=== PATIENT | female | born 1960 | race Caucasian/White ===

== ENCOUNTER 2018-06-15 14:23 | Inpatient (IN) ==
[2018-06-15] MEDS ORDERED: ONDANSETRON 4 MG/2 ML VIAL IV PRN (16:51)
[2018-06-15] MEDS ORDERED: hydrALAZINE 20 MG/1 ML VIAL IV PRN (17:04)
[2018-06-15] MEDS: SODIUM CHLORIDE 0.9% 1,000 ML IV SCH (18:25)
[2018-06-15 18:31] LABS: Basophils % 0.3 % (0.0-0.8); Eosinophils # 0.1 10*3/uL (0.0-0.87); Eosinophils % 1.1 % (0.00-10.9); Hematocrit 33.3 VOL% (35.7-47.0); Hemoglobin 9.9 GM/DL (12.0-16.0); Immature Granulocytes Absolute 0.11 #; Lymphocytes # 0.8 10*3/uL (1.4-4.0); Lymphocytes % 7.5 % (21.3-54.2); Mean Corpuscular HGB Conc 29.7 GM/DL (32-36); Mean Corpuscular Hemoglobin 29 PG (27-34); Mean Corpuscular Volume 96.5 FL (87-102); Mean Platelet Volume 9.4 FL (9.6-12.0); Monocytes # 0.6 10*3/uL (0.11-0.8); Monocytes % 5.5 % (1.7-12.7); Neutrophils # 9.4 10*3/uL (1.4-7.4); Neutrophils % 84.6 % (38.7-73.9); Platelet Count 352 T/CUMM (130-400); Red Blood Count 3.45 MC/CUMM (3.8-5.5); Red Cell Distribution Width 15.7 % (9.3-17.3); White Blood Count 11.1 T/CUMM (4-12)
[2018-06-15 18:53] LABS: Alanine Aminotransferase < 9 U/L (13-56); Albumin 2.7 G/DL (3.4-5.0); Alkaline Phosphatase 54 U/L (45-117); Aspartate Amino Transferase 9 U/L (0-37); Bilirubin,Total < 0.39 MG/DL (0.2-1.0); Blood Urea Nitrogen 16 MG/DL (7-18); Calcium 8.8 MG/DL (8.5-10.1); Glucose 88 MG/DL (74-106); Osmolality,Calculated 274.7 MOS/KG (273-304); Potassium 4.2 MMOL/L (3.5-5.1); Sodium 138 MMOL/L (136-145)
[2018-06-15] MEDS: MORPHINE 4 MG/1 ML VIAL IV PRN (19:40)
[2018-06-15] MEDS: ENOXAPARIN 40 MG/0.4 ML SYRINGE SUBCUT SCH (21:45)
[2018-06-16] MEDS: SODIUM CHLORIDE 0.9% 1,000 ML IV SCH ×3 (02:34→19:42)
[2018-06-16 05:00] LABS: Basophils % 0.3 % (0.0-0.8); Eosinophils # 0.1 10*3/uL (0.0-0.87); Eosinophils % 1.7 % (0.00-10.9); Hemoglobin 8.8 GM/DL (12.0-16.0); Immature Granulocytes Absolute 0.15 #; Lymphocytes # 0.9 10*3/uL (1.4-4.0); Lymphocytes % 11.9 % (21.3-54.2); Mean Corpuscular HGB Conc 30.3 GM/DL (32-36); Mean Corpuscular Hemoglobin 29 PG (27-34); Mean Corpuscular Volume 95.1 FL (87-102); Mean Platelet Volume 9.7 FL (9.6-12.0); Monocytes # 0.6 10*3/uL (0.11-0.8); Monocytes % 8.3 % (1.7-12.7); Neutrophils # 5.8 10*3/uL (1.4-7.4); Neutrophils % 75.8 % (38.7-73.9); Platelet Count 309 T/CUMM (130-400); Red Blood Count 3.05 MC/CUMM (3.8-5.5); Red Cell Distribution Width 15.7 % (9.3-17.3); White Blood Count 7.7 T/CUMM (4-12)
[2018-06-16 05:29] LABS: Calcium 8.4 MG/DL (8.5-10.1); Osmolality,Calculated 280.3 MOS/KG (273-304); Potassium 3.9 MMOL/L (3.5-5.1)
[2018-06-16] MEDS ORDERED: SODIUM PHOSPHATE ENEMA 133 ML BOTTLE RECTAL ONE (08:44)
[2018-06-16] MEDS ORDERED: POLYETHYLENE GLYCOL POWDER 255 GM BOTTLE PO ONE (08:45)
[2018-06-16] MEDS: BISACODYL 5 MG TABLET PO SCH ×2 (10:46→19:27)
[2018-06-16] MEDS: NICOTINE 14 MG/24 HR PATCH TRANSDERM SCH (10:47)
[2018-06-16] MEDS: MORPHINE 4 MG/1 ML VIAL IV PRN ×2 (11:14→19:28)
[2018-06-16] MEDS: ENOXAPARIN 40 MG/0.4 ML SYRINGE SUBCUT SCH (21:28)
[2018-06-17] MEDS: BISACODYL 5 MG TABLET PO SCH (00:45)
[2018-06-17] MEDS: SODIUM CHLORIDE 0.9% 1,000 ML IV SCH ×2 (03:40→11:58)
[2018-06-17 04:23] LABS: Basophils % 0.5 % (0.0-0.8); Eosinophils # 0.1 10*3/uL (0.0-0.87); Eosinophils % 1.4 % (0.00-10.9); Immature Granulocytes % 1.1 %; Immature Granulocytes Absolute 0.07 #; Lymphocytes # 0.9 10*3/uL (1.4-4.0); Lymphocytes % 13.8 % (21.3-54.2); Mean Corpuscular Hemoglobin 28 PG (27-34); Mean Corpuscular Volume 94.3 FL (87-102); Mean Platelet Volume 9.7 FL (9.6-12.0); Monocytes # 0.5 10*3/uL (0.11-0.8); Monocytes % 7.1 % (1.7-12.7); Neutrophils % 76.1 % (38.7-73.9); Platelet Count 319 T/CUMM (130-400); Red Blood Count 3.18 MC/CUMM (3.8-5.5); Red Cell Distribution Width 15.6 % (9.3-17.3); White Blood Count 6.6 T/CUMM (4-12)
[2018-06-17 04:47] LABS: Alanine Aminotransferase < 9 U/L (13-56); Albumin 2.3 G/DL (3.4-5.0); Alkaline Phosphatase 49 U/L (45-117); Aspartate Amino Transferase 8 U/L (0-37); Bilirubin,Total < 0.39 MG/DL (0.2-1.0); Blood Urea Nitrogen 12 MG/DL (7-18); Calcium 7.7 MG/DL (8.5-10.1); Glucose 80 MG/DL (74-106); Osmolality,Calculated 281.1 MOS/KG (273-304); Potassium 3.5 MMOL/L (3.5-5.1); Sodium 142 MMOL/L (136-145); Total Protein 5.9 G/DL (6.4-8.3)
[2018-06-17] MEDS: MORPHINE 4 MG/1 ML VIAL IV PRN ×2 (04:59→09:34)
[2018-06-17] MEDS ORDERED: MAGNESIUM SULF RIDER 2 GM in PREMIX 1 EACH IV PRN (06:56)
[2018-06-17] MEDS ORDERED: POLYETHYLENE GLYCOL POWDER 17 GM PACK PO SCH (09:00)
[2018-06-17] MEDS ORDERED: MAGNESIUM CHLORIDE 64 MG TABLET PO SCH (09:00)
[2018-06-17] MEDS: NICOTINE 14 MG/24 HR PATCH TRANSDERM SCH ×2 (09:23→09:37)
[2018-06-17 11:19] VITALS: BP 118/62
[2018-06-18] MEDS ORDERED: MAGNESIUM CHLORIDE 64 MG TABLET PO SCH (09:00)
== END 2018-06-17 13:26 | disposition home or self-care (01) | DRG 392 ==
LOC: N.3E 15:28 → SUATTDRO 15:28
PROVIDERS: ADMIT Internal Medicine; ATTEND Hospitalist

== ENCOUNTER 2018-10-16 18:36 | Inpatient (IN) ==
[2018-10-16 19:26] LABS: Basophils % 0.2 % (0.0-0.8); Eosinophils % 0.2 % (0.00-10.9); Hematocrit 39.5 VOL% (35.7-47.0); Hemoglobin 12.3 GM/DL (12.0-16.0); Immature Granulocytes % 0.6 %; Immature Granulocytes Absolute 0.07 #; Lymphocytes # 0.6 10*3/uL (1.4-4.0); Lymphocytes % 4.6 % (21.3-54.2); Mean Corpuscular HGB Conc 31.1 GM/DL (32-36); Mean Corpuscular Volume 91.4 FL (87-102); Mean Platelet Volume 9.5 FL (9.6-12.0); Monocytes % 3.5 % (1.7-12.7); Neutrophils % 90.9 % (38.7-73.9); Platelet Count 233 T/CUMM (130-400); Red Blood Count 4.32 MC/CUMM (3.8-5.5); White Blood Count 12.2 T/CUMM (4-12)
[2018-10-16 19:45] LABS: Albumin 3.1 G/DL (3.4-5.0); Bilirubin,Total 0.4 MG/DL (0.2-1.0); Calcium 9.4 MG/DL (8.5-10.1); Osmolality,Calculated 283.4 MOS/KG (273-304)
[2018-10-16 19:49] LABS: Eosinophils 1 % (0-10); Lymphocytes 17 % (20-55); Platelet Estimate Normal; Segmented Neutrophils 75 % (50-85); Total Cells Counted 100
[2018-10-16 19:50] LABS: Microcytosis Slight
[2018-10-16 20:24] LABS: Apearance,Urine CLEAR (Clear); Bilirubin,Urine Negative (Negative); Blood, Urine Negative (Negative); Glucose,Urine (UA) Negative (Negative); Ketones,Urine Negative (Negative); Nitrite,Urine Negative (Negative); Protein,Urine 30 MG/DL; Squamous Epithelial Cell,Urine Occasional /HPF (0-10); Urine Color Yellow (Yellow); Urine Specific Gravity 1.049 (1.001-1.035); Urine Urobilinogen < 2.0 EU/DL (0.2-1.0)
[2018-10-16] MEDS ORDERED: MEROPENEM 1,000 MG in SODIUM CHLORIDE 0.9% 100 ML IV STA (20:57)
[2018-10-16] MEDS ORDERED: ONDANSETRON 4 MG/2 ML VIAL IV STA (20:58)
[2018-10-16] MEDS ORDERED: MORPHINE 4 MG/1 ML VIAL IV STA (20:58)
[2018-10-17] MEDS ORDERED: MORPHINE PO PRN (00:53)
[2018-10-17] MEDS ORDERED: PROMETHAZINE 25 MG/1 ML VIAL IM PRN (00:53)
[2018-10-17] MEDS ORDERED: DIPHENOXYLATE/ATROPINE 2.5-0.025 MG TABLET PO PRN (00:53)
[2018-10-17] MEDS ORDERED: HYDROmorphone 2 MG/1 ML VIAL IV PRN (00:53)
[2018-10-17] MEDS: PROPOFOL 1,000 MG/100 ML BOTTLE IV SCH (00:59)
[2018-10-17] MEDS ORDERED: MIDAZOLAM 2 MG/2 ML VIAL ONE (01:00)
[2018-10-17] MEDS ORDERED: SUCCINYLCHOLINE 200 MG/10 ML VIAL ONE (01:00)
[2018-10-17] MEDS ORDERED: LACTATED RINGERS 1,000 ML IV ONE ×2 (01:00→12:28)
[2018-10-17] MEDS ORDERED: ALBUMIN 5% 12.5 GM/250 ML VIAL IV ONE (01:00)
[2018-10-17] MEDS ORDERED: fentaNYL 100 MCG/2 ML VIAL ONE (01:00)
[2018-10-17] MEDS ORDERED: SEVOFLURANE 1 UNIT/15 MINUTE INH ONE (01:00)
[2018-10-17] MEDS ORDERED: PROPOFOL 1,000 MG/100 ML BOTTLE IV SCH (01:00)
[2018-10-17] MEDS ORDERED: ETOMIDATE 40 MG/20 ML VIAL IV ONE (01:00)
[2018-10-17] MEDS ORDERED: ROCURONIUM 100 MG/10 ML VIAL IV ONE (01:00)
[2018-10-17] MEDS ORDERED: hydrALAZINE 20 MG/1 ML VIAL ONE (01:01)
[2018-10-17 01:18] LABS: ABG Base Excess -0.1 MMOL/L (-2.5-2.5); ABG HCO3 24.3 MMOL/L (20-26); ABG PCO2 38.8 MM HG (35-48); ABG PH 7.406 (7.35-7.45); ABG TCO2 21.5 MMOL/L (23-27); Allen Test Positive; Pt O2 Delivery Device Ventilator
[2018-10-17] MEDS: hydrALAZINE 20 MG/1 ML VIAL IV PRN ×2 (01:27→23:13)
[2018-10-17] MEDS: LACTATED RINGERS 1,000 ML IV SCH ×3 (01:27→22:46)
[2018-10-17] MEDS: HYDROmorphone 2 MG/1 ML VIAL IV PRN ×6 (02:29→23:21)
[2018-10-17 03:47] LABS: ABG Base Excess 0.2 MMOL/L (-2.5-2.5); ABG HCO3 24.6 MMOL/L (20-26); ABG Oxygen Saturation 99.9 % (95-100); ABG PCO2 46.6 MM HG (35-48); ABG PH 7.358 (7.35-7.45); Allen Test Positive; Pt O2 Delivery Device Ventilator
[2018-10-17 04:28] LABS: Basophils % 0.2 % (0.0-0.8); Eosinophils % 0.3 % (0.00-10.9); Hematocrit 43.1 VOL% (35.7-47.0); Hemoglobin 13.2 GM/DL (12.0-16.0); Immature Granulocytes % 1.5 %; Immature Granulocytes Absolute 0.13 #; Lymphocytes # 0.7 10*3/uL (1.4-4.0); Lymphocytes % 8.1 % (21.3-54.2); Mean Corpuscular HGB Conc 30.6 GM/DL (32-36); Mean Corpuscular Volume 92.9 FL (87-102); Mean Platelet Volume 9.5 FL (9.6-12.0); Monocytes % 3.7 % (1.7-12.7); Neutrophils % 86.2 % (38.7-73.9); Platelet Count 256 T/CUMM (130-400); Red Blood Count 4.64 MC/CUMM (3.8-5.5); Red Cell Distribution Width 16.4 % (9.3-17.3); White Blood Count 8.7 T/CUMM (4-12)
[2018-10-17 04:45] LABS: Osmolality,Calculated 278.7 MOS/KG (273-304)
[2018-10-17 05:31] LABS: Anisocytosis Slight; Band Neutrophils 4 % (0-10); Lymphocytes 12 % (20-55); Macrocytosis Slight; Platelet Estimate Normal; Segmented Neutrophils 80 % (50-85); Total Cells Counted 100
[2018-10-17] MEDS: ACYCLOVIR 200 MG CAPSULE PO SCH ×5 (06:34→21:16)
[2018-10-17] MEDS ORDERED: PANTOPRAZOLE 40 MG TABLET PO SCH (09:00)
[2018-10-17] MEDS: amLODIPine 5 MG TABLET PO SCH (09:52)
[2018-10-17] MEDS: METOPROLOL TARTRATE 100 MG TABLET PO SCH ×2 (09:52→21:16)
[2018-10-17] MEDS: ESCITALOPRAM 10 MG TABLET PO SCH (09:52)
[2018-10-17] MEDS: FAMOTIDINE 20 MG/2 ML VIAL IV SCH (12:04)
[2018-10-17 12:56] LABS: Allen Test Positive; Pt O2 Delivery Device Ventilator
[2018-10-17 12:57] LABS: ABG Base Excess 0.7 MMOL/L (-2.5-2.5); ABG HCO3 25.1 MMOL/L (20-26); ABG Oxygen Saturation 99.5 % (95-100); ABG PCO2 47.2 MM HG (35-48); ABG PH 7.361 (7.35-7.45); ABG TCO2 23.7 MMOL/L (23-27)
[2018-10-17] MEDS: ENOXAPARIN 40 MG/0.4 ML SYRINGE SUBCUT SCH (21:16)
[2018-10-18] MEDS: HYDROmorphone 2 MG/1 ML VIAL IV PRN ×4 (02:37→19:32)
[2018-10-18] MEDS: PROPOFOL 1,000 MG/100 ML BOTTLE IV SCH (02:38)
[2018-10-18 05:12] LABS: Basophils % 0.1 % (0.0-0.8); Eosinophils % 0.4 % (0.00-10.9); Hematocrit 38.8 VOL% (35.7-47.0); Hemoglobin 11.9 GM/DL (12.0-16.0); Immature Granulocytes % 0.6 %; Immature Granulocytes Absolute 0.04 #; Lymphocytes # 0.5 10*3/uL (1.4-4.0); Lymphocytes % 7.2 % (21.3-54.2); Mean Corpuscular HGB Conc 30.7 GM/DL (32-36); Mean Corpuscular Volume 93.9 FL (87-102); Mean Platelet Volume 10.3 FL (9.6-12.0); Monocytes % 4.9 % (1.7-12.7); Neutrophils % 86.8 % (38.7-73.9); Platelet Count 229 T/CUMM (130-400); Red Blood Count 4.13 MC/CUMM (3.8-5.5); Red Cell Distribution Width 16.1 % (9.3-17.3); White Blood Count 7.1 T/CUMM (4-12)
[2018-10-18 05:39] LABS: Calcium 9.5 MG/DL (8.5-10.1); Osmolality,Calculated 276.5 MOS/KG (273-304)
[2018-10-18] MEDS: LACTATED RINGERS 1,000 ML IV SCH (06:31)
[2018-10-18] MEDS: ACYCLOVIR 200 MG CAPSULE PO SCH ×4 (06:31→16:29)
[2018-10-18] MEDS ORDERED: ALBUTEROL 1.25 MG/3 ML NEB RESP TX PRN (07:29)
[2018-10-18] MEDS: FAMOTIDINE 20 MG/2 ML VIAL IV SCH (08:01)
[2018-10-18] MEDS: METOPROLOL TARTRATE 100 MG TABLET PO SCH ×2 (08:01→21:14)
[2018-10-18] MEDS: ESCITALOPRAM 10 MG TABLET PO SCH (08:02)
[2018-10-18] MEDS: amLODIPine 5 MG TABLET PO SCH (08:02)
[2018-10-18] MEDS: ONDANSETRON 4 MG/2 ML VIAL IV PRN (19:35)
[2018-10-18] MEDS: ENOXAPARIN 40 MG/0.4 ML SYRINGE SUBCUT SCH (21:14)
[2018-10-19] MEDS: HYDROmorphone 2 MG/1 ML VIAL IV PRN ×5 (00:49→21:51)
[2018-10-19] MEDS: ONDANSETRON 4 MG/2 ML VIAL IV PRN (00:51)
[2018-10-19 05:18] LABS: Basophils % 0.5 % (0.0-0.8); Hematocrit 37.2 VOL% (35.7-47.0); Hemoglobin 11.8 GM/DL (12.0-16.0); Immature Granulocytes % 0.5 %; Immature Granulocytes Absolute 0.02 #; Lymphocytes # 0.3 10*3/uL (1.4-4.0); Mean Corpuscular HGB Conc 31.7 GM/DL (32-36); Mean Corpuscular Volume 91.2 FL (87-102); Mean Platelet Volume 10.2 FL (9.6-12.0); Monocytes % 5.8 % (1.7-12.7); Neutrophils % 85.2 % (38.7-73.9); Platelet Count 260 T/CUMM (130-400); Red Blood Count 4.08 MC/CUMM (3.8-5.5); Red Cell Distribution Width 15.9 % (9.3-17.3); White Blood Count 4.2 T/CUMM (4-12)
[2018-10-19 05:24] LABS: Calcium 9.2 MG/DL (8.5-10.1); Osmolality,Calculated 280.5 MOS/KG (273-304)
[2018-10-19] MEDS: ESCITALOPRAM 10 MG TABLET PO SCH (08:38)
[2018-10-19] MEDS: amLODIPine 5 MG TABLET PO SCH (08:39)
[2018-10-19] MEDS: METOPROLOL TARTRATE 100 MG TABLET PO SCH ×2 (08:39→21:52)
[2018-10-19] MEDS: FAMOTIDINE 20 MG/2 ML VIAL IV SCH (08:39)
[2018-10-19] MEDS: POLYETHYLENE GLYCOL POWDER 17 GM PACK PO SCH (14:07)
[2018-10-19] MEDS: ENOXAPARIN 40 MG/0.4 ML SYRINGE SUBCUT SCH (21:53)
[2018-10-20] MEDS: HYDROmorphone 2 MG/1 ML VIAL IV PRN ×4 (02:56→20:21)
[2018-10-20] MEDS: ONDANSETRON 4 MG/2 ML VIAL IV PRN (02:57)
[2018-10-20 07:53] LABS: Basophils % 0.2 % (0.0-0.8); Eosinophils # 0.1 10*3/uL (0.0-0.87); Eosinophils % 1.5 % (0.00-10.9); Hematocrit 33.9 VOL% (35.7-47.0); Hemoglobin 10.6 GM/DL (12.0-16.0); Immature Granulocytes % 0.4 %; Immature Granulocytes Absolute 0.02 #; Lymphocytes # 0.5 10*3/uL (1.4-4.0); Lymphocytes % 10.5 % (21.3-54.2); Mean Corpuscular HGB Conc 31.3 GM/DL (32-36); Mean Corpuscular Volume 92.6 FL (87-102); Mean Platelet Volume 9.5 FL (9.6-12.0); Monocytes % 7.3 % (1.7-12.7); Neutrophils % 80.1 % (38.7-73.9); Platelet Count 243 T/CUMM (130-400); Red Blood Count 3.66 MC/CUMM (3.8-5.5); Red Cell Distribution Width 15.6 % (9.3-17.3); White Blood Count 4.8 T/CUMM (4-12)
[2018-10-20 08:15] LABS: Calcium 9.2 MG/DL (8.5-10.1); Osmolality,Calculated 285.3 MOS/KG (273-304)
[2018-10-20] MEDS: amLODIPine 5 MG TABLET PO SCH (09:36)
[2018-10-20] MEDS: METOPROLOL TARTRATE 100 MG TABLET PO SCH ×2 (09:36→20:13)
[2018-10-20] MEDS: POLYETHYLENE GLYCOL POWDER 17 GM PACK PO SCH (09:36)
[2018-10-20] MEDS: FAMOTIDINE 20 MG/2 ML VIAL IV SCH (09:36)
[2018-10-20] MEDS: ESCITALOPRAM 10 MG TABLET PO SCH (09:36)
[2018-10-20] MEDS: ENOXAPARIN 40 MG/0.4 ML SYRINGE SUBCUT SCH (20:13)
[2018-10-21] MEDS: HYDROmorphone 2 MG/1 ML VIAL IV PRN ×2 (04:27→12:06)
[2018-10-21 05:18] LABS: Basophils % 0.3 % (0.0-0.8); Eosinophils # 0.1 10*3/uL (0.0-0.87); Eosinophils % 1.4 % (0.00-10.9); Hematocrit 34.6 VOL% (35.7-47.0); Hemoglobin 10.9 GM/DL (12.0-16.0); Immature Granulocytes Absolute 0.06 #; Lymphocytes # 0.7 10*3/uL (1.4-4.0); Lymphocytes % 11.3 % (21.3-54.2); Mean Corpuscular HGB Conc 31.5 GM/DL (32-36); Mean Corpuscular Volume 92.3 FL (87-102); Mean Platelet Volume 10.2 FL (9.6-12.0); Monocytes % 6.5 % (1.7-12.7); Neutrophils % 79.5 % (38.7-73.9); Platelet Count 267 T/CUMM (130-400); Red Blood Count 3.75 MC/CUMM (3.8-5.5); Red Cell Distribution Width 15.7 % (9.3-17.3); White Blood Count 6.3 T/CUMM (4-12)
[2018-10-21 05:49] LABS: Calcium 8.9 MG/DL (8.5-10.1); Osmolality,Calculated 286.3 MOS/KG (273-304)
[2018-10-21] MEDS: ESCITALOPRAM 10 MG TABLET PO SCH (09:09)
[2018-10-21] MEDS: POLYETHYLENE GLYCOL POWDER 17 GM PACK PO SCH ×2 (09:10→22:38)
[2018-10-21] MEDS: METOPROLOL TARTRATE 100 MG TABLET PO SCH ×2 (09:10→21:05)
[2018-10-21] MEDS: FAMOTIDINE 20 MG/2 ML VIAL IV SCH (09:10)
[2018-10-21] MEDS: amLODIPine 5 MG TABLET PO SCH (09:10)
[2018-10-21] MEDS ORDERED: HYDROmorphone 2 MG/1 ML VIAL IV PRN (15:18)
[2018-10-21] MEDS: ENOXAPARIN 40 MG/0.4 ML SYRINGE SUBCUT SCH (21:05)
[2018-10-22 05:07] LABS: Basophils % 0.3 % (0.0-0.8); Eosinophils # 0.1 10*3/uL (0.0-0.87); Eosinophils % 1.4 % (0.00-10.9); Hematocrit 35.7 VOL% (35.7-47.0); Immature Granulocytes % 0.9 %; Immature Granulocytes Absolute 0.07 #; Lymphocytes # 1.1 10*3/uL (1.4-4.0); Lymphocytes % 14.2 % (21.3-54.2); Mean Corpuscular HGB Conc 30.8 GM/DL (32-36); Mean Corpuscular Volume 93.2 FL (87-102); Mean Platelet Volume 9.9 FL (9.6-12.0); Monocytes % 5.4 % (1.7-12.7); Neutrophils % 77.8 % (38.7-73.9); Platelet Count 265 T/CUMM (130-400); Red Blood Count 3.83 MC/CUMM (3.8-5.5); Red Cell Distribution Width 15.6 % (9.3-17.3); White Blood Count 7.7 T/CUMM (4-12)
[2018-10-22 05:44] LABS: Osmolality,Calculated 289.8 MOS/KG (273-304)
[2018-10-22] MEDS ORDERED: HYDROmorphone 2 MG/1 ML VIAL IV PRN (06:56)
[2018-10-22] MEDS: POLYETHYLENE GLYCOL POWDER 17 GM PACK PO SCH ×2 (09:04→20:54)
[2018-10-22] MEDS: ESCITALOPRAM 10 MG TABLET PO SCH (09:04)
[2018-10-22] MEDS: amLODIPine 5 MG TABLET PO SCH (09:04)
[2018-10-22] MEDS: PANTOPRAZOLE 40 MG TABLET PO SCH (09:04)
[2018-10-22] MEDS: METOPROLOL TARTRATE 100 MG TABLET PO SCH ×2 (09:05→20:53)
[2018-10-22] MEDS: METOCLOPRAMIDE 10 MG/2 ML VIAL IV SCH ×2 (11:56→17:58)
[2018-10-22] MEDS ORDERED: TUBERCULIN SKIN TEST 0.1 ML SYRINGE INTRADERM ONE (15:26)
[2018-10-22] MEDS: ENOXAPARIN 40 MG/0.4 ML SYRINGE SUBCUT SCH (20:53)
[2018-10-23] MEDS: METOCLOPRAMIDE 10 MG/2 ML VIAL IV SCH ×3 (00:54→14:24)
[2018-10-23] MEDS: METOPROLOL TARTRATE 100 MG TABLET PO SCH (09:16)
[2018-10-23] MEDS: amLODIPine 5 MG TABLET PO SCH (09:16)
[2018-10-23] MEDS: ESCITALOPRAM 10 MG TABLET PO SCH (09:17)
[2018-10-23] MEDS: POLYETHYLENE GLYCOL POWDER 17 GM PACK PO SCH (09:17)
[2018-10-23] MEDS: PANTOPRAZOLE 40 MG TABLET PO SCH (09:18)
[2018-10-23 12:05] VITALS: BP 189/90
== END 2018-10-23 15:48 | disposition home or self-care (01) | DRG 329 ==
LOC: N.ED 18:36 → N.EDINP 23:33 → N.ICU 23:49 → N.5E 10-18 10:59
PROVIDERS: ADMIT Surgery; ATTEND Surgery

== ENCOUNTER 2019-12-08 17:47 | Inpatient (IN) ==
[2019-12-08] MEDS ORDERED: ONDANSETRON 4 MG/2 ML VIAL IV STA (18:27)
[2019-12-08] MEDS ORDERED: MORPHINE 4 MG/1 ML VIAL IV STA (18:27)
[2019-12-08] MEDS ORDERED: SODIUM CHLORIDE 0.9% 1,000 ML IV STA (18:27)
[2019-12-08 18:38] LABS: Basophils % 0.6 % (0.0-0.8); Eosinophils % 0.9 % (0.00-10.9); Hematocrit 30.9 VOL% (35.7-47.0); Hemoglobin 10.2 GM/DL (12.0-16.0); Immature Granulocytes % 4.6 %; Immature Granulocytes Absolute 0.15 #; Lymphocytes # 0.8 10*3/uL (1.4-4.0); Lymphocytes % 25.2 % (21.3-54.2); Mean Corpuscular Volume 107.3 FL (87-102); Mean Platelet Volume 12.2 FL (9.6-12.0); Monocytes % 12.6 % (1.7-12.7); Neutrophils % 56.1 % (38.7-73.9); Platelet Count 192 T/CUMM (130-400); Red Blood Count 2.88 MC/CUMM (3.8-5.5); White Blood Count 3.3 T/CUMM (4-12)
[2019-12-08 18:51] LABS: Alanine Aminotransferase < 9 U/L (13-56); Alkaline Phosphatase 54 U/L (45-117); Aspartate Amino Transferase 13 U/L (0-37); Blood Urea Nitrogen 16 MG/DL (7-18); Calcium 9.2 MG/DL (8.5-10.1); Estimated Glom Filtration Rate 43 ML/MIN; Glucose 101 MG/DL (74-106); Osmolality,Calculated 277.5 MOS/KG (273-304); Total Protein 7.4 G/DL (6.4-8.3)
[2019-12-08 19:00] LABS: Apearance,Urine CLEAR (Clear); Bilirubin,Urine Negative (Negative); Blood, Urine Negative (Negative); Glucose,Urine (UA) Negative (Negative); Ketones,Urine Negative (Negative); Mucus,Urine Occasional /LPF (Occasional); Nitrite,Urine Negative (Negative); Protein,Urine 30 MG/DL; RBC,Urine 3 /HPF (0-4); Squamous Epithelial Cell,Urine Occasional /HPF (0-10); Urine Color Yellow (Yellow); WBC,Urine 2 /HPF (0-6)
[2019-12-08 19:08] LABS: Band Neutrophils 4 % (0-10); Lymphocytes 41 % (20-55); Nucleated Red Blood Cells 2 (0-5); Platelet Estimate Normal; Segmented Neutrophils 48 % (50-85); Total Cells Counted 100
[2019-12-08 19:09] LABS: Hypochromasia Slight; Macrocytosis Slight
[2019-12-08] MEDS ORDERED: ONDANSETRON 4 MG/2 ML VIAL IV PRN (20:08)
[2019-12-08] MEDS: DEXT 5% NACL 0.45% KCL 40 MEQ 40 MEQ/1,000 ML BAG IV SCH (23:15)
[2019-12-09] MEDS: DEXT 5% NACL 0.45% KCL 40 MEQ 40 MEQ/1,000 ML BAG IV SCH ×2 (05:29→14:26)
[2019-12-09] MEDS: MORPHINE 4 MG/1 ML VIAL IV PRN ×2 (05:30→21:06)
[2019-12-09 05:58] LABS: Basophils % 0.9 % (0.0-0.8); Eosinophils % 0.3 % (0.00-10.9); Hemoglobin 9.7 GM/DL (12.0-16.0); Immature Granulocytes % 4.7 %; Immature Granulocytes Absolute 0.15 #; Lymphocytes # 0.5 10*3/uL (1.4-4.0); Lymphocytes % 16.3 % (21.3-54.2); Mean Corpuscular HGB Conc 32.3 GM/DL (32-36); Mean Corpuscular Volume 109.5 FL (87-102); Mean Platelet Volume 12.5 FL (9.6-12.0); Monocytes % 12.8 % (1.7-12.7); Red Blood Count 2.74 MC/CUMM (3.8-5.5); White Blood Count 3.2 T/CUMM (4-12)
[2019-12-09 06:01] LABS: Platelet Count 158 T/CUMM (130-400)
[2019-12-09 06:23] LABS: Calcium 8.6 MG/DL (8.5-10.1); Osmolality,Calculated 279.4 MOS/KG (273-304)
[2019-12-09 06:43] LABS: Band Neutrophils 5 % (0-10); Eosinophils 2 % (0-10); Hypochromasia 1+; Lymphocytes 15 % (20-55); Ovalocytes Slight; Platelet Estimate Adequate; Segmented Neutrophils 66 % (50-85); Total Cells Counted 100
[2019-12-09 06:44] LABS: Macrocytosis Slight
[2019-12-09] MEDS ORDERED: LORazepam 2 MG/1 ML VIAL IV ONE (08:07)
[2019-12-09] MEDS ORDERED: BENZOCAINE 20% SPRAY 57 GM CAN TOP ONE (08:30)
[2019-12-09] MEDS: PANTOPRAZOLE 40 MG VIAL IV SCH (09:43)
[2019-12-09] MEDS ORDERED: MORPHINE 10 MG PO SCH (10:45)
[2019-12-09] MEDS: IBUPROFEN 600 MG TABLET PO PRN (16:11)
[2019-12-10] MEDS: DEXT 5% NACL 0.45% KCL 40 MEQ 40 MEQ/1,000 ML BAG IV SCH ×2 (00:17→06:17)
[2019-12-10] MEDS: MORPHINE 4 MG/1 ML VIAL IV PRN ×3 (06:19→20:22)
[2019-12-10 08:25] LABS: Calcium 8.6 MG/DL (8.5-10.1); Osmolality,Calculated 276.5 MOS/KG (273-304)
[2019-12-10] MEDS: METOPROLOL TARTRATE 50 MG TABLET PO SCH (09:18)
[2019-12-10] MEDS: ESCITALOPRAM 10 MG TABLET PO SCH (09:18)
[2019-12-10] MEDS: amLODIPine 5 MG TABLET PO SCH (09:19)
[2019-12-10] MEDS: ATORVASTATIN 20 MG TABLET PO SCH (09:20)
[2019-12-10] MEDS: PANTOPRAZOLE 40 MG VIAL IV SCH (09:24)
[2019-12-10] MEDS: DEXTROSE 5% NACL 0.45% 1,000 ML IV SCH (14:55)
[2019-12-11] MEDS: DEXTROSE 5% NACL 0.45% 1,000 ML IV SCH ×3 (01:41→15:00)
[2019-12-11 05:28] LABS: Basophils % 0.5 % (0.0-0.8); Eosinophils % 1.4 % (0.00-10.9); Hematocrit 30.5 VOL% (35.7-47.0); Hemoglobin 9.9 GM/DL (12.0-16.0); Immature Granulocytes % 2.3 %; Immature Granulocytes Absolute 0.05 #; Lymphocytes # 0.6 10*3/uL (1.4-4.0); Mean Corpuscular HGB Conc 32.5 GM/DL (32-36); Mean Corpuscular Volume 108.5 FL (87-102); Mean Platelet Volume 12.3 FL (9.6-12.0); Monocytes % 12.1 % (1.7-12.7); Neutrophils % 54.7 % (38.7-73.9); Platelet Count 139 T/CUMM (130-400); Red Blood Count 2.81 MC/CUMM (3.8-5.5); Red Cell Distribution Width 16.8 % (9.3-17.3); White Blood Count 2.1 T/CUMM (4-12)
[2019-12-11 06:30] LABS: Band Neutrophils 4 % (0-10); Calcium 8.9 MG/DL (8.5-10.1); Eosinophils 2 % (0-10); Lymphocytes 28 % (20-55); Metamyelocytes 3 %; Myelocytes 2 %; Nucleated Red Blood Cells 2 (0-5); Osmolality,Calculated 274.5 MOS/KG (273-304); Segmented Neutrophils 45 % (50-85); Total Cells Counted 100
[2019-12-11 06:31] LABS: Hypochromasia 1+; Macrocytosis 1+; Ovalocytes Few
[2019-12-11] MEDS: METOPROLOL TARTRATE 50 MG TABLET PO SCH (09:24)
[2019-12-11] MEDS: PANTOPRAZOLE 40 MG VIAL IV SCH (09:24)
[2019-12-11] MEDS: amLODIPine 5 MG TABLET PO SCH (09:24)
[2019-12-11] MEDS: ESCITALOPRAM 10 MG TABLET PO SCH (09:24)
[2019-12-11] MEDS: ATORVASTATIN 20 MG TABLET PO SCH (09:24)
[2019-12-11] MEDS: MORPHINE 4 MG/1 ML VIAL IV PRN ×2 (10:20→21:39)
[2019-12-12] MEDS: DEXTROSE 5% NACL 0.45% 1,000 ML IV SCH (00:32)
[2019-12-12] MEDS: MORPHINE 4 MG/1 ML VIAL IV PRN ×3 (03:38→11:54)
[2019-12-12] MEDS: PANTOPRAZOLE 40 MG VIAL IV SCH (08:00)
[2019-12-12] MEDS: amLODIPine 5 MG TABLET PO SCH (08:03)
[2019-12-12] MEDS: ATORVASTATIN 20 MG TABLET PO SCH (08:03)
[2019-12-12] MEDS: METOPROLOL TARTRATE 50 MG TABLET PO SCH (08:03)
[2019-12-12] MEDS: ESCITALOPRAM 10 MG TABLET PO SCH (08:03)
[2019-12-12] MEDS ORDERED: MORPHINE 10 MG/5 ML UDCUP PO PRN (16:50)
[2019-12-12] MEDS: MORPHINE 10 MG/5 ML UDCUP PO PRN (18:02)
[2019-12-13] MEDS: MORPHINE 10 MG/5 ML UDCUP PO PRN ×5 (00:52→21:15)
[2019-12-13] MEDS ORDERED: POLYETHYLENE GLYCOL POWDER 17 GM PACK PO SCH (09:00)
[2019-12-13] MEDS: PANTOPRAZOLE 40 MG VIAL IV SCH (09:21)
[2019-12-13] MEDS: METOPROLOL TARTRATE 50 MG TABLET PO SCH (09:21)
[2019-12-13] MEDS: amLODIPine 5 MG TABLET PO SCH (09:21)
[2019-12-13] MEDS: ESCITALOPRAM 10 MG TABLET PO SCH (09:21)
[2019-12-13] MEDS: ATORVASTATIN 20 MG TABLET PO SCH (09:22)
[2019-12-13] MEDS ORDERED: METOCLOPRAMIDE 10 MG/2 ML VIAL IV SCH (18:00)
[2019-12-13] MEDS ORDERED: PANTOPRAZOLE 40 MG VIAL IV SCH (21:00)
[2019-12-13] MEDS: PANTOPRAZOLE 40 MG TABLET PO SCH (21:15)
[2019-12-13] MEDS: POLYETHYLENE GLYCOL POWDER 17 GM PACK PO SCH (21:21)
[2019-12-14] MEDS: METOCLOPRAMIDE 5 MG TABLET PO SCH ×3 (00:55→13:23)
[2019-12-14] MEDS: MORPHINE 10 MG/5 ML UDCUP PO PRN ×5 (01:39→22:10)
[2019-12-14] MEDS: ESCITALOPRAM 10 MG TABLET PO SCH (10:57)
[2019-12-14] MEDS: amLODIPine 5 MG TABLET PO SCH (10:57)
[2019-12-14] MEDS: ATORVASTATIN 20 MG TABLET PO SCH (10:57)
[2019-12-14] MEDS: PANTOPRAZOLE 40 MG TABLET PO SCH ×2 (10:57→21:26)
[2019-12-14] MEDS: METOPROLOL TARTRATE 50 MG TABLET PO SCH (10:57)
[2019-12-14] MEDS: POLYETHYLENE GLYCOL POWDER 17 GM PACK PO SCH ×2 (10:58→21:26)
[2019-12-14] MEDS: METOCLOPRAMIDE 10 MG/10 ML UDCUP PO SCH (21:25)
[2019-12-15] MEDS: MORPHINE 10 MG/5 ML UDCUP PO PRN (04:11)
[2019-12-15] MEDS: METOCLOPRAMIDE 10 MG/10 ML UDCUP PO SCH ×4 (07:47→21:01)
[2019-12-15] MEDS: POLYETHYLENE GLYCOL POWDER 17 GM PACK PO SCH ×2 (10:30→21:00)
[2019-12-15] MEDS: METOPROLOL TARTRATE 50 MG TABLET PO SCH ×2 (10:32→11:22)
[2019-12-15] MEDS: amLODIPine 5 MG TABLET PO SCH ×2 (10:32→11:22)
[2019-12-15] MEDS: LINACLOTIDE 145 MCG CAPSULE PO SCH (10:32)
[2019-12-15] MEDS: ESCITALOPRAM 10 MG TABLET PO SCH (10:33)
[2019-12-15] MEDS: ATORVASTATIN 20 MG TABLET PO SCH (10:33)
[2019-12-15] MEDS: PANTOPRAZOLE 40 MG TABLET PO SCH ×2 (10:33→20:59)
[2019-12-15] MEDS: IBUPROFEN 600 MG TABLET PO PRN ×2 (15:30→21:18)
[2019-12-15] MEDS ORDERED: ACETAMINOPHEN 325 MG TABLET PO PRN (16:49)
[2019-12-16] MEDS: IBUPROFEN 600 MG TABLET PO PRN (05:39)
[2019-12-16] MEDS: amLODIPine 5 MG TABLET PO SCH (08:04)
[2019-12-16] MEDS: LINACLOTIDE 145 MCG CAPSULE PO SCH (08:05)
[2019-12-16] MEDS: PANTOPRAZOLE 40 MG TABLET PO SCH (08:05)
[2019-12-16] MEDS: METOPROLOL TARTRATE 50 MG TABLET PO SCH (08:05)
[2019-12-16] MEDS: ATORVASTATIN 20 MG TABLET PO SCH (08:05)
[2019-12-16] MEDS: METOCLOPRAMIDE 10 MG/10 ML UDCUP PO SCH ×2 (08:05→10:55)
[2019-12-16] MEDS: ESCITALOPRAM 10 MG TABLET PO SCH (08:05)
[2019-12-16] MEDS: POLYETHYLENE GLYCOL POWDER 17 GM PACK PO SCH ×2 (08:05→10:56)
[2019-12-16 11:32] VITALS: BP 93/38
== END 2019-12-16 13:42 | disposition hospice, home (50) | DRG 247 ==
LOC: EDBD → EDUNIT# → N.ED 17:47 → MERGE 20:07 → N.EDINP 20:07 → N.3E 21:26
PROVIDERS: ADMIT Surgery; ATTEND Surgery